=== PATIENT | male | born 1970 | race Caucasian/White ===

== ENCOUNTER → 2025-08-18 06:54 | Outpatient (CLI) | payer OTHER, SELFPAY ==
--- NOTE | 2025-08-18 06:57 | DI.ECHO.S_ITS ---
[facility]+ [facility] : : [address] : : [place] : : [id number] : : Phone: [phone] Echocardiogram Report + + :Name: ABDI COSTA Study Date: 08/18/2025 Height: 71 in : :Hospital ReadingLocation: Weight: 230 lb : : Gender: Male BSA: 2.2 m2 : :: 1970 Age: 54 yrs BP: 149/88 mmHg: :Reason For Study: DYSPNEA : :Ordering Physician: SHELLY, : :GIANLUCA Performed By: Kana Collins : :Referring: GIANLUCA BRAVO : + + Interpretation Summary Normal sinus rhythm. Normal LV size and wall thickness. Normal wall motion and LV systolic function. Ejection fraction is 60-65%. Normal chamber sizes. No significant valvular abnormalities. No prior study available for comparison. Procedure: A two-dimensional transthoracic echocardiogram with color flow and Doppler was performed. The study quality was technically good. There is no prior echocardiogram noted for this patient. The patient was in normal sinus rhythm during the exam. Left Ventricle: The left ventricle is normal in size. There is normal left ventricular wall thickness. There is no ventricular septal defect visualized. The ejection fraction is estimated to be 60-65%. There are no focal wall motion abnormalities. Diastolic parameters suggest a relaxation abnormality of the left ventricle, consistent with probable normal filling pressures. Right Ventricle: The right ventricle is borderline dilated. The right ventricular systolic function is normal. Atria: The left atrial size is normal. Right atrial size is normal. There is no Doppler evidence for an interatrial shunt. Mitral Valve: The mitral valve leaflets appear normal. There is no evidence of stenosis, fluttering, or prolapse. There is no mitral regurgitation noted. Aortic Valve: The aortic valve is trileaflet. The aortic valve opens well. No aortic regurgitation is present. Tricuspid Valve: The tricuspid valve leaflets are thin and pliable. There is a trace or physiologic amount of tricuspid regurgitation. Pulmonic Valve: The pulmonic valve is not well seen, but is grossly normal. There is no pulmonic valvular regurgitation. Great Vessels: The aortic root is normal size. The dimensions of the ascending aorta are normal. The pulmonary artery is normal size. The IVC is of normal diameter and collapses greater than 50% with a sniff. This suggests a low right atrial pressure of 3 mm Hg. Pericardium/ Pleura There is no pericardial effusion. There is no pleural effusion. MMode/2D Measurements & Calculations LVIDd: 4.3 cm LVOT diam: 2.1 cm LVIDs: 3.1 cm Ao root diam: 3.0 cm FS: 26.4 % asc Aorta Diam: 3.3 cm EPSS: 0.55 cm Ao Arch Diam (Prox Trans): 1.1 cm IVSd: 0.89 cm LVPWd: 0.91 cm LV wilks. diameter/BSA (cm/m^2): 1.9 LV sys. diameter/BSA (cm/m^2): 1.4 LA A2 area: 17.1 cm2 RA long axis: 3.7 cm LA A4 area: 15.3 cm2 RA area: 10.6 cm2 LA length (vol): 5.4 cm RA vol: 25.7 ml LA vol: 41.2 ml RA : 11.5 ml/m2 LA vol index: 18.4 ml/m2 IVC diam: 1.8 cm RVD1 (basal): 4.0 cm RVD2 (mid): 2.7 cm TAPSE: 2.5 cm Doppler Measurements & Calculations Ao V2 max: 155.2 cm/sec LVOT Max Mathieu: 119.0 cm/sec Ao V2 mean: 118.9 cm/sec LV V1 max P.7 mmHg Ao max P.6 mmHg LV V1 VTI: 24.7 cm Ao mean P.0 mmHg KATHY(I,D): 2.6 cm2 Ao V2 VTI: 33.0 cm KATHY(V,D): 2.7 cm2 sev ratio: 0.75 KATHY indexed to BSA (cm^2/m^2): 1.2 MV E max mathieu: 70.7 cm/sec PA V2 max: 118.2 cm/sec MV A max mathieu: 78.5 cm/sec PA V2 mean: 75.9 cm/sec MV E/A: 0.90 PA mean P.6 mmHg Med Peak E' Mathieu: 7.4 cm/sec PA pr(Accel): 60.2 mmHg E/E' med: 9.6 Lat Peak E' Mathieu: 8.3 cm/sec E/E' lat: 8.5 E/e' average: 9.0 MV dec time: 0.24 sec SV(LVOT): 85.8 ml Electronically signed by: Pilar Sims M.D. on Reading Physician:08/18/2025 07:16 PM
--- NOTE | 2025-08-18 06:58 | DI.NM.S_ITS ---
PROCEDURE: NM EXERCISE TREADMILL NON NUC COMPARISON: None. INDICATIONS: Dyspnea FINDINGS: Rest ECG sinus rhythm 65 bpm. Ralph protocol 9:54, max heart rate 156 bpm (94% peak predicted), peak blod pressure 178/88, 12.8 METS, GOKUL 0. Exercise ECG sinus tachycardia, no ST changes or arrhythmia. Rare PVCs. The patient did not report chest pain but demonstrated moderate shortness of breath. IMPRESSION: Low risk study. No evidence of exercise induced ischemia or arrhythmia. Normal hemodynamic response. Fair exercise capacity. Dictated by: Justyna Wilkes D.O. on 08/18/2025 at 16:13 Approved by: Justyna Wilkes D.O. on 08/18/2025 at 16:17
== END ==
LOC: ECHO 06:56
PROVIDERS: PCP Registered Nurse; Referring Provider Registered Nurse; Visit Provider Registered Nurse
DX: R06.09 Other forms of dyspnea (principal)
CPT/HCPCS: 93017; 93306